=== PATIENT | female | born 1995 | race Caucasian/White ===

== ENCOUNTER 2019-08-06 18:04 | Emergency (ER) | payer BC ==
[2019-08-06] MEDS ORDERED: KEFLEX 500 MG PO ONE (19:07)
[2019-08-06 19:09] VITALS: O2SAT 100
--- NOTE | 2019-08-06 19:13 | ERPHSYRPT ---
- History of Present Illness Time Seen by Provider: 08/06/19 19:00 Source: patient Exam Limitations: no limitations Physician History: 24 y/o white female who is not allergic to keflex, presents to ED 10 days after partial left 1st toenail removal. pt was not placed on antibiotics. there is increased redness and mild localized pus present. Method of Injury: other (surgery) Occurred: days ago (10 days) Quality: aching Severity of Pain-Max: mild Severity of Pain-Current: mild Lower Extremities Pain: 1st toe: left Associated Symptoms: none Allergies/Adverse Reactions: amoxicillin [From Amoxil] Allergy (Verified 08/06/19 19:10) azithromycin [From Zithromax] Allergy (Verified 08/06/19 19:10) clindamycin Allergy (Verified 08/06/19 19:10) Home Medications: Phentermine HCl [Adipex-P] 37.5 mg PO DAILY 08/06/19 [History] Sertraline HCl 100 mg PO DAILY 08/06/19 [History] - Review of Systems Constitutional: No Symptoms Eyes: No Symptoms Ears, Nose, & Throat: No Symptoms Respiratory: No Symptoms Cardiac: No Symptoms Abdominal/Gastrointestinal: No Symptoms Genitourinary Symptoms: No Symptoms Musculoskeletal: No Symptoms Skin: No Symptoms Neurological: No Symptoms Psychological: No Symptoms Endocrine: No Symptoms Hematologic/Lymphatic: No Symptoms Immunological/Allergic: No Symptoms All Other Systems: Reviewed and Negative - Past Medical History Neurological History: No Pertinent History ENT History: No Pertinent History Cardiac History: No Pertinent History Respiratory History: No Pertinent History Endocrine Medical History: No Pertinent History Musculoskeletal History: No Pertinent History GI Medical History: No Pertinent History History: No Pertinent History Psycho-Social History: No Pertinent History Female Reproductive Disorders: No Pertinent History - Past Surgical History Neuro Surgical History: No Pertinent History Cardiac: No Pertinent History Respiratory: No Pertinent History Gastrointestinal: No Pertinent History Genitourinary: No Pertinent History Musculoskeletal: No Pertinent History Female Surgical History: No Pertinent History - Social History Smoking Status: Never smoker - Physical Exam General Appearance: no apparent distress, alert, anxiety Neck Exam: normal inspection Cardiovascular/Respiratory Exam: chest non-tender Gastrointestinal/Abdominal Exam: non-tender Back Exam: normal inspection, normal range of motion, No CVA tenderness, No vertebral tenderness Hips Exam: bilateral: non-tender, normal inspection, normal range of motion, no evidence of injury Legs Exam: bilateral leg: non-tender, normal inspection, normal range of motion , no evidence of injury Knees Exam: bilateral knee: non-tender, normal inspection, normal range of motion, no evidence of injury Ankle Exam: bilateral ankle: non-tender, normal inspection, normal range of motion, no evidence of injury Foot Exam: left foot: infection (localized, no prox streaking, no odor, mild pus ), nail injury, soft tissue tenderness, swelling Neuro/Tendon Exam: normal sensation, normal motor functions, normal tendon functions Mental Status Exam: alert, oriented x 3, cooperative Skin Exam: normal color, warm, dry SpO2 Interpretation: normal O2 Delivery: Room Air - Course Nursing assessment & vital signs reviewed: Yes - Progress Progress: unchanged Counseled pt/family regarding: diagnosis, need for follow-up, rad results - Departure Departure Disposition: Home Clinical Impression: Ingrown toenail with infection Condition: Stable Critical Care Time: No Additional Instructions: soak foot in warm soapy water or epsom salts two times daily. clean with hydrogen peroxide once daily. call your surgeon tomorrow morning for further management. Prescriptions: Cephalexin Mh 500 mg [Keflex 500 mg] 500 mg PO TID #21 capsule
[2019-08-06] MEDS ORDERED: KEFLEX 500 MG ONE (19:27)
[2019-08-06 20:00] VITALS: BP 132/78; PULSE 98
== END 2019-08-06 20:00 | disposition home or self-care (01) ==
LOC: ED 18:04
DX: L60.0 Ingrowing nail (principal); L08.9 Local infection of the skin and subcutaneous tissue, unspecified
CPT/HCPCS: 99283; A9270-GY

== ENCOUNTER 2021-03-09 11:34 | Emergency (ER) | payer BC ==
--- NOTE | 2021-03-09 11:45 | ERPHSYRPT ---
- History of Present Illness Time Seen by Provider: 03/09/21 11:45 Source: patient, family Exam Limitations: no limitations Physician History: This is a 25-year-old white female who is overweight and twisted her right ankle when stepped in a hole while walking at 630 this morning. She did not apply ice or provide any treatment. She was concerned with the persistent pain and the presence of swelling. She can bear weight but it hurts to do so. She has no other complaints or injured sites. Her complaint today is right ankle pain and swelling Method of Injury: twisted Occurred: this morning Quality: constant, aching Severity of Pain-Max: moderate Severity of Pain-Current: mild (Drip) Lower Extremities Pain: ankle: right Modifying Factors: Improves With: movement (Hurts with movement) Associated Symptoms: other (Can bear weight but hurts to do so) Allergies/Adverse Reactions: amoxicillin [From Amoxil] Allergy (Verified 03/09/21 11:50) azithromycin [From Zithromax] Allergy (Verified 03/09/21 11:50) clindamycin Allergy (Verified 03/09/21 11:50) Home Medications: Phentermine HCl [Adipex-P] 37.5 mg PO DAILY 08/06/19 [History] Sertraline HCl 100 mg PO DAILY 08/06/19 [History] Travel Risk - International Travel Have you traveled outside of the country in past 3 weeks: No - Coronavirus Screening Are you exhibiting any of the following symptoms?: No Close contact with a COVID-19 positive Pt in past 14-21 Days: No - Review of Systems Constitutional: No Symptoms Eyes: No Symptoms Ears, Nose, & Throat: No Symptoms Respiratory: No Symptoms Cardiac: No Symptoms Abdominal/Gastrointestinal: No Symptoms Genitourinary Symptoms: No Symptoms Musculoskeletal: Injury (Right ankle) Skin: No Symptoms Neurological: No Symptoms Psychological: No Symptoms Endocrine: No Symptoms Hematologic/Lymphatic: No Symptoms Immunological/Allergic: No Symptoms All Other Systems: Reviewed and Negative - Past Medical History Pertinent Past Medical History: No Neurological History: No Pertinent History ENT History: No Pertinent History Cardiac History: No Pertinent History Respiratory History: No Pertinent History Endocrine Medical History: No Pertinent History Musculoskeletal History: No Pertinent History GI Medical History: No Pertinent History History: No Pertinent History Psycho-Social History: No Pertinent History Female Reproductive Disorders: No Pertinent History - Past Surgical History Past Surgical History: Yes Neuro Surgical History: No Pertinent History Cardiac: No Pertinent History Respiratory: No Pertinent History Gastrointestinal: No Pertinent History Genitourinary: No Pertinent History Musculoskeletal: No Pertinent History Female Surgical History: No Pertinent History Other Surgical History: spinal cord stimulator - Social History Smoking Status: Never smoker Exposure to second hand smoke: No Drug Use: none Patient Lives Alone: No - Nursing Vital Signs Nursing Vital Signs: Initial Vital Signs Temperature 97.4 F 03/09/21 11:39 Pulse Rate 105 H 03/09/21 11:39 Respiratory Rate 18 03/09/21 11:39 Blood Pressure 136/96 03/09/21 11:39 O2 Sat by Pulse Oximetry 100 03/09/21 11:39 Pain Scale Pain Intensity 5 - Physical Exam General Appearance: no apparent distress, alert, anxiety, obese Eyes, Ears, Nose, Throat Exam: normal ENT inspection, moist mucous membranes Neck Exam: normal inspection, non-tender, supple, full range of motion Cardiovascular/Respiratory Exam: chest non-tender, no respiratory distress Gastrointestinal/Abdominal Exam: non-tender Back Exam: normal inspection, normal range of motion, No CVA tenderness, No vertebral tenderness Hips Exam: bilateral: non-tender, normal inspection, normal range of motion, no evidence of injury Legs Exam: bilateral leg: non-tender, normal inspection, normal range of motion Knees Exam: bilateral knee: non-tender, normal inspection, normal range of motion, no evidence of injury Ankle Exam: right ankle: pain, soft tissue tenderness, swelling, left ankle: non-tender, normal inspection, normal range of motion, no evidence of injury Foot Exam: bilateral foot: non-tender, normal inspection, normal range of motion, no evidence of injury Neuro/Tendon Exam: normal sensation, normal motor functions, normal tendon fu nctions, responds to pain Mental Status Exam: alert, oriented x 3, cooperative Skin Exam: normal color, warm, dry SpO2 Interpretation: normal O2 Delivery: Room Air - Course Nursing assessment & vital signs reviewed: Yes Ordered Tests: Active Orders 24 hr Category Date Time Status Jonathan Bandage Application [facility] STAT Care 03/09/21 12:49 Ordered ANKLE (3 VIEWS) Stat Exams 03/09/21 11:57 Ordered - Progress Progress: unchanged, pain not gone completely, re-examined Progress Note: 03/09/21 12:49 X-ray right ankle reveals no evidence of any acute fracture or dislocation. Counseled pt/family regarding: diagnosis, need for follow-up, rad results - Departure Departure Disposition: Home Clinical Impression: Right ankle sprain Condition: Stable Critical Care Time: No Referrals: Provider,Unknown [Primary Care Provider] - Additional Instructions: Ice pack to area 3 times a day for the next 3 days. Use Tylenol and ibuprofen for pain control. Follow-up with the [facility] orthopedic clinic if symptoms worsen or persist beyond 3 days. Ambulate as tolerated.
[2021-03-09 13:09] VITALS: BP 127/76; PULSE 105; O2SAT 100
--- NOTE | 2021-03-09 19:21 | XRAY ---
Indication: Pain following fall. Comparison: None 3 view right ankle demonstrates mild soft tissue swelling. No other bony, articular, or soft tissue abnormalities.
== END 2021-03-09 13:08 | disposition home or self-care (01) ==
LOC: ED 11:34
DX: S93.401A Sprain of unspecified ligament of right ankle, initial encounter (principal); W50.2XXA Accidental twist by another person, initial encounter; Y93.89 Activity, other specified; Y92.89 Other specified places as the place of occurrence of the external cause
CPT/HCPCS: 73610; 99283

== ENCOUNTER 2022-06-12 06:50 | Emergency (ER) | payer BC ==
[2022-06-12 07:17] VITALS: O2SAT 95
[2022-06-12] MEDS ORDERED: TORAdol 30 mg Injection IV ONE (07:36)
[2022-06-12] MEDS ORDERED: Sodium Chloride 0.9% 1000 ML 1,000 ML IV STA (07:42)
[2022-06-12] MEDS ORDERED: Sodium Chloride 0.9% 1000 ML 1,000 ML ONE (07:42)
[2022-06-12] MEDS ORDERED: TORAdol 30 mg Injection ONE (07:42)
--- NOTE | 2022-06-12 07:43 | ERPHSYRPT ---
- History of Present Illness Historian: patient Exam Limitations: no limitations Patient Subjective Stated Complaint: Abdominal pain Triage Nursing Assessment: Patient ambulated back to ED and transferred self to bed. Patient A+O 3. Patient's skin pink, warm and dry. Patient complains of left sided abdominal pain that started yesterday morning that has gotten worse. Khadijah ent states pain is constant sharp pain 7/10. Patient complains of diarrhea and nausea, but denies vomiting. Abdomen soft and round with BS X 4. Physician History: 26 yo Wf w L sided abdominal pain x 1 day. Pain is 7/10, burning, and nothing makes better or worse. She has had diarrhea/nausea wo vomiting. Melena/hematochezia/dysuria/hematuria/ all denied. She has never had this pain before. Cough/fever/coryza all denied. Timing/Duration: yesterday Activities at Onset: rest Quality: burning Abdominal Pain Onset Location: LUQ Pain Radiation: no radiation Severity of Pain-Max: severe Severity of Pain-Current: moderate Modifying Factors: Improves With: nothing Associated Symptoms: diarrhea, nausea, No back, No chest pain, No diaphoresis, No fever/chills, No fatigue, No headache, No heartburn, No loss of appetite, No neck pain, No rash, No shortness of breath, No syncope, No vomiting, No weakness Previous symptoms: no prior history Allergies/Adverse Reactions: amoxicillin [From Amoxil] Allergy (Verified 06/12/22 07:11) azithromycin [From Zithromax] Allergy (Verified 06/12/22 07:11) clindamycin Allergy (Verified 06/12/22 07:11) Home Medications: Sertraline HCl 50 mg PO DAILY 08/06/19 [History] Buspirone HCl 15 mg PO BID 06/12/22 [History] Famotidine 20 mg [Pepcid 20 MG] 1 tab PO BID 06/12/22 [History] Hx Tetanus, Diphtheria Vaccination/Date Given: Yes Hx Influenza Vaccination/Date Given: No Hx Pneumococcal Vaccination/Date Given: No Immunizations Up to Date: Yes Travel Risk - International Travel Have you traveled outside of the country in past 3 weeks: No - Coronavirus Screening Are you exhibiting any of the following symptoms?: No Close contact with a COVID-19 positive Pt in past 14-21 Days: No - Vaccine Status Have you recieved a Covid-19 vaccination: Yes [employer]: Moderna - Vaccination Dates Date of 2cond Vaccination (if applicable): TBD - Review of Systems Constitutional: No Symptoms Eyes: No Symptoms Ears, Nose, & Throat: No Symptoms Respiratory: No Symptoms Cardiac: No Symptoms Abdominal/Gastrointestinal: Abdominal Pain, Nausea, Diarrhea, No Vomiting, No Constipation, No Hematemesis, No Hematochezia, No Melena, No Dysphagia, No Appetite Changes Genitourinary Symptoms: No Symptoms Musculoskeletal: No Symptoms Skin: No Symptoms Neurological: No Symptoms Psychological: No Symptoms Endocrine: No Symptoms Hematologic/Lymphatic: No Symptoms Immunological/Allergic: No Symptoms - Past Medical History Pertinent Past Medical History: No Neurological History: No Pertinent History ENT History: No Pertinent History Cardiac History: No Pertinent History Respiratory History: No Pertinent History Endocrine Medical History: No Pertinent History Musculoskeletal History: No Pertinent History GI Medical History: No Pertinent History History: No Pertinent History Psycho-Social History: No Pertinent History Female Reproductive Disorders: No Pertinent History Other Medical History: herniated disc - Past Surgical History Past Surgical History: Yes Neuro Surgical History: No Pertinent History Cardiac: No Pertinent History Respiratory: No Pertinent History Gastrointestinal: No Pertinent History Genitourinary: No Pertinent History Musculoskeletal: No Pertinent History Female Surgical History: No Pertinent History Other Surgical History: spinal cord stimulator - Social History Smoking Status: Never smoker Exposure to second hand smoke: No Drug Use: none Patient Lives Alone: No Significant Family History: no pertinent family hx - Female History Hx Last Menstrual Period: Juneme 2 Hx Now: No - Nursing Vital Signs Nursing Vital Signs: Initial Vital Signs Temperature 96.9 F 06/12/22 07:13 Pulse Rate 132 H 06/12/22 07:13 Respiratory Rate 18 06/12/22 07:13 Blood Pressure 112/60 06/12/22 07:13 O2 Sat by Pulse Oximetry 95 06/12/22 07:13 Pain Scale Pain Intensity 0 - Physical Exam General Appearance: no apparent distress Eye Exam: PERRL/EOMI, eyes nml inspection Ears, Nose, Throat Exam: normal ENT inspection, TMs normal, pharynx normal, moist mucous membranes Neck Exam: normal inspection, non-tender, supple, full range of motion, No meningismus, No mass, No Brudzinski, No Kernig's, No carotid bruit Respiratory Exam: normal breath sounds, lungs clear, airway intact, No chest tenderness, No respiratory distress Cardiovascular Exam: normal peripheral pulses, tachycardia, capillary refill <2 sec Gastrointestinal/Abdomen Exam: soft, normal bowel sounds, tenderness (Mild LUQ TTP wo guarding or rebound) Back Exam: normal inspection, normal range of motion, No CVA tenderness, No vertebral tenderness Extremity Exam: normal inspection, normal range of motion Neurologic Exam: alert, oriented x 3, cooperative, family health nurse practitioner II-XII nml as tested, normal mood/affect, nml cerebellar function, nml station & gait, sensation nml Skin Exam: normal color, warm, dry Lymphatic Exam: No adenopathy SpO2 Interpretation: normal SpO2: 95 O2 Delivery: Room Air - Course Nursing assessment & vital signs reviewed: Yes - CT Exams Abdomen/Pelvis CT Interpretation: Discussed w/radiologist (Nothing acute) Ordered Tests: Active Orders 24 hr Category Date Time Status IV Insertion STAT Care 06/12/22 07:35 Completed ABDOMEN AND PELVIS W/0 CONTRAS [CT] Stat Exams 06/12/22 09:45 Completed AMYLASE Stat Lab 06/12/22 07:35 Completed CBC W DIFF Stat Lab 06/12/22 07:35 Completed CMP Stat Lab 06/12/22 07:35 Completed HCG QUALITATIVE,SERUM Stat Lab 06/12/22 07:35 Completed LIPASE Stat Lab 06/12/22 07:35 Completed UA W/RFX CULTURE Stat Lab 06/12/22 08:53 Completed Medication Summary Discontinued Medications Generic Name Dose Route Start Last Admin Trade Name Freq PRN Reason Stop Dose Admin Sodium Chloride 1,000 mls @ 999 mls/hr 06/12/22 07:42 06/12/22 09:02 Sodium Chloride 0.9% 1000 Ml IV 06/12/22 08:42 Infused .Q1H1M STA Infusion Sodium Chloride Confirm 06/12/22 07:42 Sodium Chloride 0.9% 1000 Ml Administered 06/12/22 07:43 Dose 1,000 mls @ ud .ROUTE .STK-MED ONE Ketorolac Tromethamine 15 mg 06/12/22 07:36 06/12/22 07:44 Ketorolac Tromethamine 30 Mg/Ml Inj IV 06/12/22 07:37 15 mg STAT ONE Administration Ketorolac Tromethamine Confirm 06/12/22 07:42 Ketorolac Tromethamine 30 Mg/Ml Inj Administered 06/12/22 07:43 Dose 30 mg .ROUTE .K-MED ONE Lab/Rad Data: Laboratory Result Diagrams 06/12/22 07:35 06/12/22 07:35 Laboratory Results 06/12/22 06/12/22 06/12/22 Range/Units 08:53 07:50 07:35 WBC (4.0-10.5) x10^3/uL RBC (4.1-5.4) x10^6/uL Hgb (12.0-16.0) g/dL Hct (35-47) % MCV (78-100) fL MCH (26-32) pg MCHC (32-36) g/dL RDW (11.5-14.0) % Plt Count (150-450) x10^3/uL MPV (7.5-11.0) fL Gran % (36.0-66.0) % Immature Gran % (Auto) (0.00-0.4) % Nucleat RBC Rel Count (0.00-0.1) % Eos # (Auto) (0-0.5) x10^3/uL Immature Gran # (Auto) (0.00-0.03) x10^3u/L Absolute Lymphs (auto) (1.0-4.6) x10^3/uL Absolute Monos (auto) (0.0-1.3) x10^3/uL Absolute Nucleated RBC (0.00-0.01) x10^3u/L Lymphocytes % (24.0-44.0) % Monocytes % (0.0-12.0) % Eosinophils % (0.00-5.0) % Basophils % (0.0-0.4) % Absolute Granulocytes (1.4-6.9) x10^3/uL Basophils # (0-0.4) x10^3/uL Sodium (137-145) mmol/L Potassium (3.5-5.1) mmol/L Chloride (98-107) mmol/L Carbon Dioxide (22-30) mmol/L Anion Gap (5-15) MEQ/L BUN (7-17) mg/dL Creatinine (0.52-1.04) mg/dL Estimated GFR ML/MIN Glucose (74-106) mg/dL Calcium (8.4-10.2) mg/dL Total Bilirubin (0.2-1.3) mg/dL AST (14-36) U/L ALT (0-35) U/L Alkaline Phosphatase (38-126) U/L Serum Total Protein (6.3-8.2) g/dL Albumin (3.5-5.0) g/dL Amylase (30-110) U/L Lipase (23-300) U/L Serum , Qual NEGATIVE (Negative) Urinalys Dipstick Clnc MAIN LAB Urine Color YELLOW (YELLOW) Urine Appearance CLEAR (CLEAR) Urine pH 5.5 (5-6) Ur Specific Glen 1.020 (1.005-1.025) POC Urine Protein Conf NEGATIVE (Negative) Urine Ketones NEGATIVE (NEGATIVE) Urine Nitrite NEGATIVE (NEGATIVE) Urine Bilirubin NEGATIVE (NEGATIVE) Urine Urobilinogen 0.2 (0-1) mg/dL Urine Leukocytes NEGATIVE (NEGATIVE) Urine WBC (Auto) NONE (0-5) /HPF Urine RBC (Auto) NONE (0-2) /HPF U Epithel Cells (Auto) RARE (FEW) /HPF Urine Bacteria (Auto) NONE (NEGATIVE) /HPF Urine RBC NEGATIVE (0-5) Hector/ul Urine Mucus (Auto) SLIGHT (NEGATIVE) /HPF Ur Culture Indicated? NO Urine Glucose NEGATIVE (NEGATIVE) mg/dL Influenza Type A Ag NEGATIVE (NEGATIVE) Influenza Type B Ag NEGATIVE (NEGATIVE) RSV (PCR) NEGATIVE (Negative) SARS-CoV-2 (PCR) NEGATIVE (NEGATIVE) 06/12/22 06/12/22 Range/Units 07:35 07:35 WBC 13.6 H (4.0-10.5) x10^3/uL RBC 4.67 (4.1-5.4) x10^6/uL Hgb 13.0 (12.0-16.0) g/dL Hct 41.4 (35-47) % MCV 88.7 (78-100) fL MCH 27.8 (26-32) pg MCHC 31.4 L (32-36) g/dL RDW 13.8 (11.5-14.0) % Plt Count 385 (150-450) x10^3/uL MPV 9.2 (7.5-11.0) fL Gran % 91.1 H (36.0-66.0) % Immature Gran % (Auto) 0.4 (0.00-0.4) % Nucleat RBC Rel Count 0.0 (0.00-0.1) % Eos # (Auto) 0.05 (0-0.5) x10^3/uL Immature Gran # (Auto) 0.06 H (0.00-0.03) x10^3u/L Absolute Lymphs (auto) 0.61 L (1.0-4.6) x10^3/uL Absolute Monos (auto) 0.45 (0.0-1.3) x10^3/uL Absolute Nucleated RBC 0.00 (0.00-0.01) x10^3u/L Lymphocytes % 4.5 L (24.0-44.0) % Monocytes % 3.3 (0.0-12.0) % Eosinophils % 0.4 (0.00-5.0) % Basophils % 0.3 (0.0-0.4) % Absolute Granulocytes 12.40 H (1.4-6.9) x10^3/uL Basophils # 0.04 (0-0.4) x10^3/uL Sodium 137 (137-145) mmol/L Potassium 4.4 (3.5-5.1) mmol/L Chloride 103 (98-107) mmol/L Carbon Dioxide 23 (22-30) mmol/L Anion Gap 15.5 H (5-15) MEQ/L BUN 7 (7-17) mg/dL Creatinine 0.61 (0.52-1.04) mg/dL Estimated GFR > 60.0 ML/MIN Glucose 114 H (74-106) mg/dL Calcium 9.1 (8.4-10.2) mg/dL Total Bilirubin 0.50 (0.2-1.3) mg/dL AST 24 (14-36) U/L ALT 20 (0-35) U/L Alkaline Phosphatase 90 (38-126) U/L Serum Total Protein 8.2 (6.3-8.2) g/dL Albumin 4.6 (3.5-5.0) g/dL Amylase 59 (30-110) U/L Lipase 28 (23-300) U/L Serum , Qual (Negative) Urinalys Dipstick Clnc Urine Color (YELLOW) Urine Appearance (CLEAR) Urine pH (5-6) Ur Specific Glen (1.005-1.025) POC Urine Protein Conf (Negative) Urine Ketones (NEGATIVE) Urine Nitrite (NEGATIVE) Urine Bilirubin (NEGATIVE) Urine Urobilinogen (0-1) mg/dL Urine Leukocytes (NEGATIVE) Urine WBC (Auto) (0-5) /HPF Urine RBC (Auto) (0-2) /HPF U Epithel Cells (Auto) (FEW) /HPF Urine Bacteria (Auto) (NEGATIVE) /HPF Urine RBC (0-5) Hector/ul Urine Mucus (Auto) (NEGATIVE) /HPF Ur Culture Indicated? Urine Glucose (NEGATIVE) mg/dL Influenza Type A Ag (NEGATIVE) Influenza Type B Ag (NEGATIVE) RSV (PCR) (Negative) SARS-CoV-2 (PCR) (NEGATIVE) - Progress Progress: improved Progress Note: 06/12/22 10:41 Pt's pain greatly improved w 15mg IV Toradol Counseled pt/family regarding: lab results, diagnosis, need for follow-up, rad results - Departure Departure Disposition: Home Clinical Impression: Abdominal pain Condition: Stable Critical Care Time: No Referrals: DOCTOR,NO FAMILY [Primary Care Provider] - Follow up/PCP as directed Instructions: Severe Abdominal Pain, Adult (DC) Additional Instructions: Follow up with your family MD Return to ER for increasing pain or temperature greater than 100.5 Forms: Work/School Release Form
[2022-06-12 07:44] LABS: Basophil (Absolute #) 0.04 x10^3/uL (0-0.4); Eosinophil % 0.4 % (0.00-5.0); Eosinophil (Absolute #) 0.05 x10^3/uL (0-0.5); Hematocrit 41.4 % (35-47); Lymphocyte (Absolute #) 0.61 x10^3/uL (1.0-4.6); Lymphocytes % 4.5 % (24.0-44.0); Mean Cell Volume 88.7 fL (78-100); Mean Corpuscular Hemoglobin 27.8 pg (26-32); Mean Corpuscular Hgb Concent. 31.4 g/dL (32-36); Mean Platelet Volume 9.2 fL (7.5-11.0); Monocyte (Absolute #) 0.45 x10^3/uL (0.0-1.3); Monocytes % 3.3 % (0.0-12.0); Neutrophil % 91.1 % (36.0-66.0); Platelet Count 385 x10^3/uL (150-450); Red Blood Count 4.67 x10^6/uL (4.1-5.4); Red Cell Distribution Width 13.8 % (11.5-14.0); White Blood Count 13.6 x10^3/uL (4.0-10.5)
[2022-06-12 07:57] LABS: ALBUMIN 4.6 g/dL (3.5-5.0); ALKALINE PHOSPHATASE 90 U/L (38-126); AMYLASE 59 U/L (30-110); ANION GAP 15.5 MEQ/L (5-15); BLOOD UREA NITROGEN 7 mg/dL (7-17); CHLORIDE 103 mmol/L (98-107); Calcium 9.1 mg/dL (8.4-10.2); Carbon Dioxide 23 mmol/L (22-30); Creatinine 1 0.61 mg/dL (0.52-1.04); EST GLOMERULAR FILTRATION RATE > 60.0 ML/MIN; Glucose 114 mg/dL (74-106); LIPASE 28 U/L (23-300); Potassium 4.4 mmol/L (3.5-5.1); SGOT/AST 24 U/L (14-36); SGPT/ALT 20 U/L (0-35); SODIUM 137 mmol/L (137-145); Total Protein 8.2 g/dL (6.3-8.2)
[2022-06-12 08:52] LABS: INFLUENZA A NEGATIVE (NEGATIVE); INFLUENZA B NEGATIVE (NEGATIVE); RESPIRATORY SYNCTIAL VIRUS NEGATIVE (Negative); SARS-CoV-2 Xpert Express NEGATIVE (NEGATIVE)
[2022-06-12 09:42] LABS: Epithelial Cells RARE /HPF (FEW); Mucus SLIGHT /HPF (NEGATIVE)
[2022-06-12 09:43] LABS: Appearance CLEAR (CLEAR); Bilirubin NEGATIVE (NEGATIVE); Dipstick done @ ? MAIN LAB; Glucose NEGATIVE (NEGATIVE); Ketones NEGATIVE (NEGATIVE); Nitrite NEGATIVE (NEGATIVE); Ph 5.5 (5-6); Protein,Urine Dip NEGATIVE (Negative); RBC NEGATIVE Ery/ul (0-5); Urobilinogen 0.2 mg/dL (0-1)
[2022-06-12 09:44] LABS: Urine Cultured Indicated? NO
--- NOTE | 2022-06-12 10:18 | XRAY ---
Indication: Left lower quadrant pain and diarrhea. Multiple contiguous axial images obtained through the abdomen and pelvis without contrast. Comparison: None Lung bases clear. Heart is not enlarged. Noncontrasted stomach and bowel loops appear nonobstructed with normal appendix. Colon is predominantly decompressed with little to no fecal debris. No free fluid/air. Remaining liver, gallbladder, pancreas, spleen, adrenal glands, kidneys, ureters, bladder, uterus, and aorta are unremarkable for noncontrast exam. Osseous structures intact. No ventral or inguinal hernias. Impression: Negative CT abdomen/pelvis without contrast exam.
[2022-06-12 10:45] VITALS: BP 102/67; PULSE 96
== END 2022-06-12 10:54 | disposition home or self-care (01) ==
LOC: ED 06:50
DX: R10.12 Left upper quadrant pain (principal); R19.7 Diarrhea, unspecified; R11.0 Nausea; Z79.899 Other long term (current) drug therapy
CPT/HCPCS: 0241U; 36000; 36415; 74176; 80053; 81015; 82150; 83690; 84703; 85025; 96360; 96374; 99284; J1885

== ENCOUNTER 2024-08-29 14:52 | Emergency (ER) | payer BC, OTHER ==
[2024-08-29 15:06] VITALS: PULSE 131; TEMP 97.9; O2SAT 97
--- NOTE | 2024-08-29 15:32 | ERPHSYRPT ---
- History of Present Illness Time Seen by Provider: 08/29/24 15:15 Source: patient Exam Limitations: no limitations Patient Subjective Stated Complaint: pt states that the stairs at her home collapsed while she was walking up them and injured her left knee Triage Nursing Assessment: Pt brought to the ER by her , tachycardic, hypertensive, rates pain as 6/10 while laying and 10/10 when walking, pulses normal, skin n/w/d, denies hitting head or LOC, doesn't appear to be in any distress Physician History: 29-year-old female BMI of 51.4 presents to our ED for evaluation of left knee pain. Patient states she was a sending steps. Patient was on the fourth step when the stairs collapsed. The steps are in her personal home. No other injuries reported. Pain described as an ache that is localized to the anterior knee. There is a very superficial abrasion at this area as well. Pain worse with weightbearing. Pain worse with flexion of the involved knee. Pain improved with rest. No BHT or LOC. No neck pain. Cervical spine cleared clinically. Patient otherwise feels well. She voices no other complaints or concerns at this time. Portions of this note were created with voice recognition technology. There may be grammatical, spelling, punctuation or sound alike errors Timing/Duration: today Severity: moderate Modifying Factors: Improves With: movement Associated Symptoms: denies symptoms Allergies/Adverse Reactions: amoxicillin [From Amoxil] Allergy (Verified 08/29/24 15:06) azithromycin [From Zithromax] Allergy (Verified 08/29/24 15:06) clindamycin Allergy (Verified 08/29/24 15:06) Home Medications: Sertraline HCl 100 mg PO DAILY 08/06/19 [History] Buspirone HCl 15 mg PO TID 06/12/22 [History] Hx Tetanus, Diphtheria Vaccination/Date Given: Yes Hx Influenza Vaccination/Date Given: No Hx Pneumococcal Vaccination/Date Given: No Travel Risk - International Travel Have you traveled outside of the country in past 3 weeks: No - Emerging Infectious Disease Are you exhibiting symptoms associated with any current EIDs: No - Review of Systems Constitutional: No Symptoms, No Fever, No Chills Eyes: No Symptoms Ears, Nose, & Throat: No Symptoms Respiratory: No Symptoms, No Cough, No Dyspnea Cardiac: No Symptoms, No Chest Pain, No Edema, No Syncope Abdominal/Gastrointestinal: No Symptoms, No Abdominal Pain, No Nausea, No Vomiting, No Diarrhea Genitourinary Symptoms: No Symptoms, No Dysuria Musculoskeletal: No Symptoms, No Back Pain, No Neck Pain Skin: No Symptoms, No Rash Neurological: No Symptoms, No Dizziness, No Focal Weakness, No Sensory Changes Psychological: No Symptoms Endocrine: No Symptoms Hematologic/Lymphatic: No Symptoms Immunological/Allergic: No Symptoms All Other Systems: Reviewed and Negative - Past Medical History Pertinent Past Medical History: No Neurological History: No Pertinent History ENT History: No Pertinent History Cardiac History: No Pertinent History Respiratory History: No Pertinent History Endocrine Medical History: No Pertinent History Musculoskeletal History: No Pertinent History GI Medical History: No Pertinent History History: No Pertinent History Psycho-Social History: No Pertinent History Female Reproductive Disorders: No Pertinent History Other Medical History: herniated disc - Past Surgical History Past Surgical History: Yes Neuro Surgical History: No Pertinent History Cardiac: No Pertinent History Respiratory: No Pertinent History Gastrointestinal: No Pertinent History Genitourinary: No Pertinent History Musculoskeletal: No Pertinent History Female Surgical History: Dilation & Curettage Other Surgical History: spinal cord stimulator implanted and removed Significant Family History: no pertinent family hx - Female History Hx Last Menstrual Period: 08/17/2024 Hx Now: No - Social History Smoking Status: Never smoker Exposure to second hand smoke: No Drug Use: none Patient Lives Alone: No - Social Determinants of Health Will the patient participate in the screening: Yes Do you worry about a steady place to live?: No Do you have any problems with any of the following?: No known problems In the past 12 months,have you had to go without utilities?: No Transportation Issues: No Has anyone in your support network made you feel unsafe?: No Have you or anyone in your house had to go without enough: No - Nursing Vital Signs Nursing Vital Signs: Initial Vital Signs Temperature 97.9 F 08/29/24 14:59 Pulse Rate 131 H 08/29/24 14:59 Blood Pressure 141/100 08/29/24 14:59 O2 Sat by Pulse Oximetry 97 08/29/24 14:59 Pain Scale Pain Intensity 6 - Physical Exam General Appearance: no apparent distress, alert Eye Exam: PERRL/EOMI, eyes nml inspection Ears, Nose, Throat Exam: normal ENT inspection, moist mucous membranes Neck Exam: normal inspection, non-tender, supple, full range of motion Respiratory Exam: normal breath sounds, lungs clear, airway intact, No respiratory distress Cardiovascular Exam: regular rate/rhythm, normal heart sounds, normal peripheral pulses Gastrointestinal/Abdomen Exam: soft, normal bowel sounds, No tenderness, No mass Back Exam: normal inspection, No CVA tenderness, No vertebral tenderness Extremity Exam: normal inspection, pelvis stable, other (Left knee limited range of motion secondary to pain. All knee ligaments are stable. Extensor mechanism appears to be intact. The involved extremities neurovascular tact distally compartments are soft cap refill less than 2 seconds.) Neurologic Exam: alert, oriented x 3, cooperative, normal mood/affect, sensation nml, No motor deficits Skin Exam: normal color, warm, dry, No rash Lymphatic Exam: No adenopathy SpO2 Interpretation: normal SpO2: 97 O2 Delivery: Room Air - Course Nursing assessment & vital signs reviewed: Yes - Radiology Exams Patella X-ray Interpretation: Teleradiologist Report (Fracture inferior pole of patella) Ordered Tests: Active Orders 24 hr Category Date Time Status KNEE (3 VIEWS) Stat Exams 08/29/24 15:03 Completed Medication Summary Discontinued Medications Generic Name Dose Route Start Last Admin Trade Name Freq PRN Reason Stop Dose Admin Ketorolac Tromethamine 60 mg 08/29/24 16:25 Ketorolac Tromethamine 30 Mg/Ml Inj IM 08/29/24 16:26 STAT ONE - Progress Progress: improved Progress Note: 29-year-old female presents to our ED status post fall. Physical exam reveals some tenderness over the left anterior patella. Superficial abrasion noted as well. All knee ligaments are stable. X-ray reveals a fracture inferior pole of patella. Extensor mechanism intact. The involved extremities neurovascular tact distally compartments are soft cap refill less than 2 seconds. No other injuries reported. Patient received a left lower extremity postmold. We did not have an appropriately fitting knee immobilizer. We will keep patient nonweightbearing. A referral to the orthopedic clinic completed. Patient received an IM dose of Toradol. A prescription for the same forwarded to patient's pharmacy. Patient agrees to follow-up tomorrow in the orthopedic clinic as discussed. Significant other at bedside. They voiced no other complaints or concerns at this time. Portions of this note were created with voice recognition technology. There may be grammatical, spelling, punctuation or sound alike errors Complexity of problem addressed is moderate acute complicated no critical care time. Complex of data reviewed and analyzed is moderate. Test ordered chest reviewed results analyzed and correlated clinically with history and physical exam. Risk of complication and or risk of morbidity/mortality of patient management is moderate. A prescription for Toradol forwarded to patient's pharmacy. Vital stable. Time spent to discharge patient is approximately 15 minutes. Plan of care established for shared decision making. No social determinants of health present to impede follow-up. Portions of this note were created with voice recognition technology. There may be grammatical, spelling, punctuation or sound alike errors 08/29/24 16:37 Counseled pt/family regarding: lab results, diagnosis, need for follow-up, rad results - Departure Departure Disposition: Home Clinical Impression: Fall, Patellar fracture Condition: Stable Critical Care Time: No Referrals: DOCTOR,NO FAMILY [Primary Care Provider] - Follow up/PCP as directed MYESHA WHITFIELD DO [ACTIVE STAFF] - Follow up/PCP as directed Additional Instructions: Discharge/Care Plan PAVEL SHANE was seen on 08/29/24 in the Emergency Room. The patient was counseled regarding Diagnosis,Lab results, Imaging studies, need for follow up and when to return to the Emergency Room. Prescriptions given: Discharge Note I have spoken with the patient and/or caregivers. I have explained the patient's condition, diagnosis and treatment plan based on the information available to me at this time. I have answered the patient's and/or caregiver's questions and addressed any concerns. The patient and/or caregivers have as good understanding of the patient's diagnosis, condition and treatment plan as can be expected at this point. The vital signs have been stable. The patient's condition is stable and appropriate for discharge from the emergency department. The patient will pursue further outpatient evaluation with the primary care physician or other designated or consulting physician as outlined in the discharge instructions. The patient and/or caregivers are agreeable to this plan of care and follow-up instructions have been explained in detail. The patient and/or caregivers have received these instruction. The patient/and or caregivers are aware that any significant change in condition or worsening of symptoms should prompt an immediate return to this or the closest emergency department or call 911. Prescriptions: Ketorolac Trometh 10 mg Tab [TORAdol 10 MG TABLET] 10 mg PO TID 5 Days #15 tablet Outpatient Orders: Ortho Referral Time Frame: 1 Day, Facility: [facility], Location: ORTHO CLINIC
--- NOTE | 2024-08-29 16:22 | XRAY ---
Indication: Status post fall. Comparison: None 3 view left knee demonstrates small nondisplaced fracture inferior patella. Incidental small proximal tibia healed fibrous cortical defect. No other bony, articular, or soft tissue abnormalities.
[2024-08-29] MEDS ORDERED: TORAdol 30 mg Injection ONE (16:46)
[2024-08-29] MEDS: TORAdol 30 mg Injection IM ONE (16:50)
[2024-08-29 16:56] VITALS: BP 126/89
== END 2024-08-29 17:06 | disposition home or self-care (01) ==
LOC: ED 14:52
DX: S82.002A Unspecified fracture of left patella, initial encounter for closed fracture (principal); W10.8XXA Fall (on) (from) other stairs and steps, initial encounter; Z79.899 Other long term (current) drug therapy
CPT/HCPCS: 29505; 73562; 96372; 99283; J1885